=== PATIENT | male | born 1940 | race Caucasian/White ===

== ENCOUNTER → 2018-03-21 | Outpatient (CLI) | payer MEDICARE ==
[~2018-03-21] MED LIST: AMOCLA875 PO; ASPI81CH PO; ATOR40TA PO; DILT120 PO; ENAHYD PO; EZET10-40 PO; Enalapril-Hctz1 EACH PO; FLUO.05TC TOP; FLUO.05TO TOP; METF500 PO; OMEP20ER PO; PANT40 PO; PIOG30 PO; SIMV20 PO; TAMS.4ER PO
== END ==
LOC: PLD 08:33 → LAB SHORT 08:33
DX: D48.5 Neoplasm of uncertain behavior of skin (principal)
CPT/HCPCS: 88305

== ENCOUNTER 2025-03-11 10:44 | Emergency (ER) | payer OTHER ==
[~2025-03-11] VITALS: Ht 172.7 cm; Wt 86.2 kg
[~2025-03-11 10:44] MED LIST changes: +PIOG45
[2025-03-11] MEDS ORDERED: Dexamethasone Sod Phos 10 MG/ML 1ML VIAL IV ONE (10:55)
[2025-03-11] MEDS ORDERED: Tranexamic Acid 100 ML IV ONE (10:55)
[2025-03-11] MEDS ORDERED: DiphenhydrAMINE HCl 50 MG/ML 1ML Vial IV ONE (10:55)
[2025-03-11] MEDS ORDERED: BENADRYL25 MG PO (11:07)
[2025-03-11] MEDS ORDERED: Amitriptyline H10 MG PO (11:07)
[2025-03-11] MEDS ORDERED: FARXIGA10 MG PO (11:08)
[2025-03-11 11:32] LABS: BASOPHILS ABSOLUTE AUTO 0.05 K/mm3 (0.00-0.23); BASOPHILS PERCENT AUTO 1 % (0-2); EOSINOPHILS ABSOLUTE AUTO 0.26 K/mm3 (0.00-0.68); EOSINOPHILS PERCENT AUTO 4 % (0-6); Hematocrit 37.2 % (37.0-53.0); Hemoglobin 12.2 g/dL (13.5-17.5); IMMATURE GRAN ABSOLUTE AUTO 0.01 K/mm3 (0.00-0.10); IMMATURE GRAN PERCENT AUTO 0 % (0-1); LYMPHOCYTES ABSOLUTE AUTO 1.15 K/mm3 (0.84-5.20); LYMPHOCYTES PERCENT AUTO 17 % (21-46); MONOCYTES PERCENT AUTO 8 % (4-13); Mean Corpuscular HGB Conc 32.8 g/dL (31.5-36.5); Mean Corpuscular Volume 95 fL (80-100); Mean Platelet Volume 10.8 fL (9.1-12.4); NEUTROPHILS ABSOLUTE AUTO 4.67 K/mm3 (1.96-9.15); NEUTROPHILS PERCENT AUTO 70 % (41-73); Platelet Count 201 K/mm3 (150-400); RDW Coefficient Variation 13.3 % (11.7-14.2); RDW Standard Deviation 46.5 fL (35.1-46.3); Red Blood Cell Count 3.93 M/mm3 (4.30-5.90); White Blood Cell Count 6.64 K/mm3 (4.00-11.30)
[2025-03-11 11:38] VITALS: BP 178/88
[2025-03-11 11:53] LABS: Albumin, Blood 3.9 g/dL (3.4-5.0); Albumin/Globulin Ratio 1.1 (0.8-1.8); Bilirubin, Total 0.4 mg/dL (0.1-1.0); Bun/Creatinine Ratio 18.8 (12.0-20.0); Calcium, Blood 9.1 mg/dL (8.5-10.1); Creatinine, Blood 2.93 mg/dL (0.60-1.20); Globulin, Blood 3.5 g/dL (2.2-4.0); Potassium, Blood 4.9 mmol/L (3.5-5.5); Total Protein, Blood 7.4 g/dL (6.4-8.2)
[2025-03-11] MEDS ORDERED: Hydrochloroth12.5 MG PO (12:30)
[2025-03-11] MEDS ORDERED: LOSA25 PO (12:30)
[2025-03-11] MEDS ORDERED: HYDROCHLOROTH12.5 MG PO (12:42)
== END 2025-03-11 12:46 | disposition home or self-care (01) ==
LOC: ER 10:44
PROVIDERS: Emergency Medicine
DX: T78.3XXA Angioneurotic edema, initial encounter (principal); T46.4X5A Adverse effect of angiotensin-converting-enzyme inhibitors, initial encounter; E11.22 Type 2 diabetes mellitus with diabetic chronic kidney disease; N18.9 Chronic kidney disease, unspecified; M19.90 Unspecified osteoarthritis, unspecified site; Z91.030 Bee allergy status; Z79.84 Long term (current) use of oral hypoglycemic drugs; Z79.82 Long term (current) use of aspirin; Z79.899 Other long term (current) drug therapy
CPT/HCPCS: 80053; 85025; 96374; 96375; 99283-25; J1100; J1200

== ENCOUNTER 2025-04-18 09:42 | Day surgery (SDC) | payer OTHER ==
[~2025-04-18] VITALS: Ht 170.2 cm; Wt 83.9 kg
[~2025-04-18 09:42] MED LIST changes: +Amitriptyline H10 MG PO; +BENADRYL25 MG PO; +Balanced Salt Epinephrine Irrigation Solution 500 mL IR SCH; +FARXIGA10 MG PO; +HYDROCHLOROTH12.5 MG PO; +Hydrochloroth12.5 MG PO; +LOSA25 PO; +Moxifloxacin HCL 0.5 MG/0.1 ML 0.4MLSYR RIGHTEYE SCH; +Ondansetron 4 MG SoluTab MM PRN; +PHENYLEPHRINE\\TROPICAMIDE\\TETRACAINE OPHTHALMIC DILATING SOLN RIGHTEYE PRN; +Povidone-Iodine 450 DROP/30 ML Solution ONE; +Povidone-Iodine 450 DROP/30 ML Solution RIGHTEYE SCH; +Tetracaine HCl/Pf 0.5% Opth Soln 4 ml ONE; +diazePAM 5 MG,diazePAM 2 MG PO SCH
[2025-04-18] MEDS ORDERED: TRIA15CR3 TOP (10:11)
--- NOTE | 2025-04-18 10:17 | NUR ---
04/18/25 1017 Joanne Queen PATIENT'S BP WAS ELEVATED AND OUT OF RANGE UPON FIRST COMING TO PREOP. AFTER HAVING PATIENT SIT FOR A FEW MINUTES, BP DID COME DOWN TO RANGE WITHIN PARAMETERS FOR VALIUM ADMINISTRATION. SPO2 MONITOR WAS GIVING FLUCTUATING HEART RATE READINGS BETWEEN 43-80 SO RHYTHM STRIP OBTAINED AND DR REVIEWED AND STATED OKAY TO PROCEED. PT REPORTED 0/10 ANXIETY LEVEL PRIOR TO ADMINISTRATION OF VALIUM 7MG PO @ 1014. TETRACAINE IN AT 1014, PLEDGETT IN AT 1015. CALL LIGHT IN PT'S HAND AND CONTINUOUS SPO2 AND HR MONITORING IN PLACE.
[2025-04-18] MEDS ORDERED: Tetracaine HCl 0.5% Opth Soln 15 ml RIGHTEYE ONE (11:29)
--- NOTE | 2025-04-18 11:34 | NUR ---
04/18/25 1134 Efren Mcgowan N 187/88 96% 10L BLOW BY O2 76 16 PT RESTING COMFORTABLY VSS, NO SIGNS OF DISTRESS OR DISCOMFORT.
[2025-04-18 11:50] VITALS: BP 172/60
== END 2025-04-18 12:08 | disposition home or self-care (01) ==
LOC: ORSCSDS 09:42
PROVIDERS: Student in an Organized Health Care Education/Training Program
PROC: 08RJ3JZ Replacement of Right Lens with Synthetic Substitute, Percutaneous Approach (ICD-10-PCS; principal; 2025-04-18 11:30)
DX: E11.36 Type 2 diabetes mellitus with diabetic cataract (principal); H25.813 Combined forms of age-related cataract, bilateral; I10 Essential (primary) hypertension; E78.00 Pure hypercholesterolemia, unspecified; Z87.891 Personal history of nicotine dependence; Z79.84 Long term (current) use of oral hypoglycemic drugs; Z79.82 Long term (current) use of aspirin; Z79.899 Other long term (current) drug therapy
CPT/HCPCS: A9270; J2003; V2632

== ENCOUNTER 2025-04-25 06:15 | Day surgery (SDC) | payer OTHER ==
[~2025-04-25] VITALS: Ht 170.2 cm; Wt 83.8 kg
[~2025-04-25 06:15] MED LIST changes: +Moxifloxacin HCL 0.5 MG/0.1 ML 0.4MLSYR LEFTEYE SCH; -Moxifloxacin HCL 0.5 MG/0.1 ML 0.4MLSYR RIGHTEYE SCH; +PHENYLEPHRINE\\TROPICAMIDE\\TETRACAINE OPHTHALMIC DILATING SOLN LEFTEYE PRN; -PHENYLEPHRINE\\TROPICAMIDE\\TETRACAINE OPHTHALMIC DILATING SOLN RIGHTEYE PRN; +Povidone-Iodine 450 DROP/30 ML Solution LEFTEYE SCH; -Povidone-Iodine 450 DROP/30 ML Solution RIGHTEYE SCH; +TRIA15CR3 TOP
--- NOTE | 2025-04-25 06:49 | NUR ---
04/25/25 0649 Joanne Queen PATIENT REPORTS ANXIETY LEVEL 0/10 PRIOR TO ADMINISTRATION OF VALIUM 7MG PO @ 0645. TETRACAINE IN AT 0647. PLEDGETT IN AT 0648. CALL LIGHT IN PLACE. SPO2 AND HR MONITORING IN PLACE. JERI AT BEDSIDE.
--- NOTE | 2025-04-25 08:11 | NUR ---
04/25/25 0811 Evonne Betancourt HR: 73 BP: 185/90 SPO2: 100% ON 2L NASAL CANNULA
[2025-04-25 08:27] VITALS: BP 182/84
--- NOTE | 2025-04-25 08:29 | NUR ---
04/25/25 0841 Viki Sow DENTURES AND GLASSES RETURNED TO PATIENT. JERI INSTRUCTED TO PULL CAR AROUND TO IMPROVEMENT SPECIALIST AREA
== END 2025-04-25 08:36 | disposition home or self-care (01) ==
LOC: ORSCSDS 06:15
PROVIDERS: Student in an Organized Health Care Education/Training Program
PROC: 08RK3JZ Replacement of Left Lens with Synthetic Substitute, Percutaneous Approach (ICD-10-PCS; principal; 2025-04-25 08:00)
DX: E11.36 Type 2 diabetes mellitus with diabetic cataract (principal); H25.812 Combined forms of age-related cataract, left eye; Z96.1 Presence of intraocular lens; Z87.891 Personal history of nicotine dependence; E78.00 Pure hypercholesterolemia, unspecified; I10 Essential (primary) hypertension; Z79.82 Long term (current) use of aspirin; Z79.899 Other long term (current) drug therapy
CPT/HCPCS: A9270; V2632

== ENCOUNTER 2025-08-28 11:54 | Inpatient (IN) | payer OTHER ==
[~2025-08-28] VITALS: Ht 170.2 cm; Wt 79.5 kg
[~2025-08-28 11:54] MED LIST changes: -Balanced Salt Epinephrine Irrigation Solution 500 mL IR SCH; -Moxifloxacin HCL 0.5 MG/0.1 ML 0.4MLSYR LEFTEYE SCH; -Ondansetron 4 MG SoluTab MM PRN; -PHENYLEPHRINE\\TROPICAMIDE\\TETRACAINE OPHTHALMIC DILATING SOLN LEFTEYE PRN; -Povidone-Iodine 450 DROP/30 ML Solution LEFTEYE SCH; -Povidone-Iodine 450 DROP/30 ML Solution ONE; -Tetracaine HCl/Pf 0.5% Opth Soln 4 ml ONE; -diazePAM 5 MG,diazePAM 2 MG PO SCH
[2025-08-28 12:21] LABS: BASOPHILS ABSOLUTE AUTO 0.04 K/mm3 (0.00-0.23); BASOPHILS PERCENT AUTO 1 % (0-2); EOSINOPHILS ABSOLUTE AUTO 0.15 K/mm3 (0.00-0.68); EOSINOPHILS PERCENT AUTO 2 % (0-6); Hematocrit 35.5 % (37.0-53.0); Hemoglobin 11.5 g/dL (13.5-17.5); IMMATURE GRAN ABSOLUTE AUTO 0.03 K/mm3 (0.00-0.10); IMMATURE GRAN PERCENT AUTO 0 % (0-1); LYMPHOCYTES ABSOLUTE AUTO 0.48 K/mm3 (0.84-5.20); LYMPHOCYTES PERCENT AUTO 7 % (21-46); MONOCYTES ABSOLUTE AUTO 0.66 K/mm3 (0.16-1.47); MONOCYTES PERCENT AUTO 9 % (4-13); Mean Corpuscular HGB Conc 32.4 g/dL (31.5-36.5); Mean Corpuscular Volume 89 fL (80-100); NEUTROPHILS ABSOLUTE AUTO 6.08 K/mm3 (1.96-9.15); NEUTROPHILS PERCENT AUTO 82 % (41-73); NRBC ABSOLUTE 0.00 K/mm3 (0.00-0.02); NRBC Auto 0.0 /100 WBC (0.0-0.2); Platelet Count 246 K/mm3 (150-400); RDW Coefficient Variation 15.1 % (11.7-14.2); RDW Standard Deviation 49.1 fL (35.1-46.3)
[2025-08-28 12:51] LABS: Alanine Aminotransfer (ALT/SGP 59.0 U/L (12-78); Albumin, Blood 3.4 g/dL (3.4-5.0); Albumin/Globulin Ratio 1.1 (0.8-1.8); Anion Gap 10.0 mmol/L (3-11); Aspartate Aminotrans (AST/SGOT 23.0 U/L (12-37); Bilirubin, Total 0.6 mg/dL (0.1-1.0); Blood Urea Nitrogen 32.0 mg/dL (8-24); CO2, Blood 28.0 mmol/L (21-32); Calcium, Blood 8.6 mg/dL (8.5-10.1); Chloride, Blood 103.0 mmol/L (98-108); Creatinine, Blood 2.58 mg/dL (0.60-1.20); Globulin, Blood 3.2 g/dL (2.2-4.0); Glucose, Blood 226.0 mg/dL (70-99); Potassium, Blood 3.8 mmol/L (3.5-5.5); Sodium, Blood 137.0 mmol/L (136-145); Total Protein, Blood 6.6 g/dL (6.4-8.2)
[2025-08-28] MEDS ORDERED: Magnesium Hydroxide Conc 10 ML UDC PO PRN (15:10)
[2025-08-28] MEDS ORDERED: FLU VACC TS2025(65UP)/MF59C/PF 45 MCG/0.5 ML SYRINGE IM SCH (15:15)
[2025-08-28] MEDS ORDERED: Insulin Human Lispro 100 Units/ML 3ML Syringe SC SCH (16:30)
[2025-08-28 18:02] VITALS: BP 154/67
--- NOTE | 2025-08-28 18:35 | NUR ---
PT ARRIVED VIA WC FROM ED, PHONE REPORT RECEIVED FROM ROBINA SOSA. PT TRANSFERRED FROM WC TO BED INDEPENDENTLY IS STEADY ON FEET, SOB WITH ACTIVITY ON 4L NC. DENIES PAIN, EDEMATOUS TO BLE, MEAL PROVIDED UPON ARRIVAL TO UNIT. 1811: CALLED DR BROWN FOR CLARIFICATION ON LASIX 80MG IVP DOSE DUE, PER DR BROWN DO NOT GIVE LASIX 80MG. NEW ORDER RECEIVED FOR LASIX 40MG IVP ONE TIME DOSE. REVIEWED WITH PATIENT FALL RISK INTERVENTIONS AND CALL LIGHT USE, BED ALARM ON, CALL LIGHT IN REACH. OXYGEN TITRATED TO 2L NC SATS 95%. PT CURRENTLY EATING MEAL, AT BEDSIDE. WILL REPORT TO ONCOMMING SHIFT NEED FOR ADMIT COMPLETION.
[2025-08-28] MEDS ORDERED: FURO40 PO (18:45)
[2025-08-28] MEDS ORDERED: POTA10T PO (18:46)
[2025-08-28] MEDS ORDERED: MIRT15 PO (18:46)
[2025-08-28] MEDS ORDERED: MINO2.5 PO (18:47)
[2025-08-28] MEDS ORDERED: GLIP10 PO (18:47)
[2025-08-28] MEDS ORDERED: HYDR1TAB94 PO (18:49)
[2025-08-28] MEDS ORDERED: HYDCOR2.5C TOP (18:50)
[2025-08-28] MEDS ORDERED: KETO15TC TOP (18:51)
[2025-08-28] MEDS ORDERED: Heparin Sodium,Porcine 5,000 UNIT/0.5 ML SDV SC SCH (21:00)
[2025-08-28 23:19] VITALS: BP 127/83
[2025-08-29] VITALS (8 sets, daily range): BP systolic 96–157; BP diastolic 53–76
--- NOTE | 2025-08-29 03:52 | NUR ---
SHIFT SUMMARY: PT IS AOX4. VSS. CARDIAC TELEMETRY MONITORING, NSR 70s. DENIES CP. CURRENTLY ON 2L O2 VIA NC, BUT REQUIRES 5L WITH STANDING. LUNG SOUNDS ARE CRACKLES THROUGHOUT. PT HAS 3+ EDEMA TO BLE AND HIPS. CALL LIGHT IS WITHIN REACH. BED IS LOW AND LOCKED.
[2025-08-29 06:07] LABS: BASOPHILS ABSOLUTE AUTO 0.06 K/mm3 (0.00-0.23); BASOPHILS PERCENT AUTO 1 % (0-2); EOSINOPHILS ABSOLUTE AUTO 0.27 K/mm3 (0.00-0.68); EOSINOPHILS PERCENT AUTO 4 % (0-6); Hematocrit 33.8 % (37.0-53.0); Hemoglobin 10.9 g/dL (13.5-17.5); IMMATURE GRAN ABSOLUTE AUTO 0.01 K/mm3 (0.00-0.10); IMMATURE GRAN PERCENT AUTO 0 % (0-1); LYMPHOCYTES ABSOLUTE AUTO 0.55 K/mm3 (0.84-5.20); LYMPHOCYTES PERCENT AUTO 8 % (21-46); MONOCYTES ABSOLUTE AUTO 0.68 K/mm3 (0.16-1.47); MONOCYTES PERCENT AUTO 9 % (4-13); Mean Corpuscular HGB Conc 32.2 g/dL (31.5-36.5); Mean Corpuscular Volume 89 fL (80-100); NEUTROPHILS ABSOLUTE AUTO 5.64 K/mm3 (1.96-9.15); NEUTROPHILS PERCENT AUTO 78 % (41-73); NRBC ABSOLUTE 0.00 K/mm3 (0.00-0.02); NRBC Auto 0.0 /100 WBC (0.0-0.2); Platelet Count 225 K/mm3 (150-400); RDW Coefficient Variation 15.2 % (11.7-14.2); RDW Standard Deviation 49.9 fL (35.1-46.3)
[2025-08-29 06:44] LABS: Anion Gap 8.0 mmol/L (3-11); Blood Urea Nitrogen 35.0 mg/dL (8-24); CO2, Blood 31.0 mmol/L (21-32); Calcium, Blood 8.6 mg/dL (8.5-10.1); Chloride, Blood 102.0 mmol/L (98-108); Creatinine, Blood 2.77 mg/dL (0.60-1.20); Glucose, Blood 102.0 mg/dL (70-99); Magnesium, Blood 2.3 mg/dL (1.6-2.4); Potassium, Blood 3.3 mmol/L (3.5-5.5); Sodium, Blood 138.0 mmol/L (136-145)
[2025-08-29] MEDS ORDERED: Potassium Chl 20MEQ/Water100ML 100 ML IV STA (08:30)
[2025-08-29] MEDS ORDERED: NS 250 ML IV PRN (08:40)
[2025-08-29] MEDS ORDERED: Potassium Chloride 10 Meq Tablet SA PO SCH (12:00)
--- NOTE | 2025-08-29 18:34 | NUR ---
SHIFT SUMMARY PATIENT ALERT AND ORIENTED X4, MAKE NEEDS KNOWN. PLEASANT AND COOPERATIVE DURING CARE. PATIENT DENIES PAIN. MEDICATED PER EMAR. STAND BY ASSIST D/T OXYGEN TUBING. PT ON 3L/NC AT THE MOMENT. PT VOIDING AND TOLERATING PO. NO ACUTE CHANGE DURING THIS SHIFT. VITAL SIGNS STABLE. SELF-REPOSITION IN BED. BED LOCKED AND IN LOWEST POSITION. CALL LIGHT WITHIN REACH.
[2025-08-30 03:02] VITALS: BP 155/77
--- NOTE | 2025-08-30 04:03 | NUR ---
SHIFT SUMMARY: PT IS AOX4. INDEPENDENT WITH URINAL, BUT SBA TO TOILET. PT GETS VERY SOB WITH EXERTION, WHEN GETTING OOB O2 IS INCREASED FROM 3L TO 5L WHILE AMBULATING. PT HAS BLE EDEMA THAT EXTENDS FROM FEET TO HIPS. LUNGS ARE DIMINISHED TO BASES. MAINTAINING STRICT I&OS. PT IS CURRENTLY AWAKE AND IN A RECLINER, CHAIR ALARM IN PLACE. CALL LIGHT IS WITHIN REACH.
[2025-08-30 07:44] VITALS: BP 161/79
[2025-08-30 08:32] LABS: BASOPHILS ABSOLUTE AUTO 0.08 K/mm3 (0.00-0.23); BASOPHILS PERCENT AUTO 1 % (0-2); EOSINOPHILS ABSOLUTE AUTO 0.49 K/mm3 (0.00-0.68); EOSINOPHILS PERCENT AUTO 6 % (0-6); Hematocrit 39.6 % (37.0-53.0); Hemoglobin 12.5 g/dL (13.5-17.5); IMMATURE GRAN ABSOLUTE AUTO 0.01 K/mm3 (0.00-0.10); IMMATURE GRAN PERCENT AUTO 0 % (0-1); LYMPHOCYTES ABSOLUTE AUTO 0.63 K/mm3 (0.84-5.20); LYMPHOCYTES PERCENT AUTO 8 % (21-46); MONOCYTES ABSOLUTE AUTO 0.66 K/mm3 (0.16-1.47); MONOCYTES PERCENT AUTO 8 % (4-13); Mean Corpuscular HGB Conc 31.6 g/dL (31.5-36.5); Mean Corpuscular Volume 90 fL (80-100); NEUTROPHILS ABSOLUTE AUTO 6.04 K/mm3 (1.96-9.15); NEUTROPHILS PERCENT AUTO 76 % (41-73); NRBC ABSOLUTE 0.00 K/mm3 (0.00-0.02); NRBC Auto 0.0 /100 WBC (0.0-0.2); Platelet Count 276 K/mm3 (150-400); RDW Coefficient Variation 15.0 % (11.7-14.2); RDW Standard Deviation 49.2 fL (35.1-46.3)
[2025-08-30 09:27] LABS: Alanine Aminotransfer (ALT/SGP 52.0 U/L (12-78); Albumin, Blood 3.4 g/dL (3.4-5.0); Albumin/Globulin Ratio 1.0 (0.8-1.8); Anion Gap 8.0 mmol/L (3-11); Aspartate Aminotrans (AST/SGOT 27.0 U/L (12-37); Bilirubin, Total 0.7 mg/dL (0.1-1.0); Blood Urea Nitrogen 35.0 mg/dL (8-24); CO2, Blood 34.0 mmol/L (21-32); Calcium, Blood 8.6 mg/dL (8.5-10.1); Chloride, Blood 101.0 mmol/L (98-108); Creatinine, Blood 2.74 mg/dL (0.60-1.20); Globulin, Blood 3.3 g/dL (2.2-4.0); Glucose, Blood 82.0 mg/dL (70-99); Potassium, Blood 3.3 mmol/L (3.5-5.5); Sodium, Blood 140.0 mmol/L (136-145); Total Protein, Blood 6.7 g/dL (6.4-8.2)
[2025-08-30] MEDS ORDERED: Potassium Chl 20MEQ/Water100ML 100 ML IV STA (09:45)
[2025-08-30] MEDS ORDERED: Potassium Chl 20MEQ/Water100ML 100 ML IV ONE (12:30)
--- NOTE | 2025-08-30 13:14 | NUR ---
PALLIATIVE CARE CONSULT RECEIVED FOR CARDIAC, AD/POLST. CHART REVIEWED. NO POLST CURRENTLY ON FILE. PT IS A FULL CODE CURRENTLY.
[2025-08-30 17:05] VITALS: BP 158/78
--- NOTE | 2025-08-30 17:43 | NUR ---
SHIFT SUMMARY PT A&OX4, VSS, ON 2L O2 NC, AMB W/ ASSIST, TOLERATING PO, VOIDING, AND DENIED PAIN. PT'S K LOW THIS AM, K INF AND ORAL GIVEN PER ORDER. NEW IV ACCESS OBTAINED. PT STATES EDEMA AND BREATHING IMPROVED FROM YESTERDAY. NO OTHER ACUTE CHANGES. CALL LIGHT WITHIN REACH AND PT ABLE TO MAKE NEEDS KNOWN.
[2025-08-30 21:16] VITALS: BP 138/79
[2025-08-31 02:47] VITALS: BP 144/70
--- NOTE | 2025-08-31 05:36 | NUR ---
COOLING SYSTEM OPERATOR SUMMARY PT A&OX4, VSS. ABLE TO COMMUNICATE NEEDS APPROPRIATELY. PT HAS BEEN ASLEEP FOR THE GREATER HALF OF THE SHIFT. CHEST RISE/RESPIRATIONS NOTED. REMAINS ON TELE. SR AT 92 W/ BBB. REMAINS ON 2L NC. O2 SATS >=94% ON 2L. PT IS IMPULSIVE AND OVERESTIMATES ABILITIES. GETS UP W/O CALLING FOR APPROPRIATE ASSISTANCE. BED ALARM ON. BED RAILS UP X 2, BED IN LOWEST POSITION, BED WHEELS LOCKED, PERSONAL BELONGINGS AND CALL LIGHT WITHIN REACH FOR SAFETY.
[2025-08-31 07:38] VITALS: BP 132/65
[2025-08-31 08:11] LABS: Anion Gap 6.0 mmol/L (3-11); Blood Urea Nitrogen 41.0 mg/dL (8-24); CO2, Blood 38.0 mmol/L (21-32); Calcium, Blood 8.3 mg/dL (8.5-10.1); Chloride, Blood 101.0 mmol/L (98-108); Creatinine, Blood 2.65 mg/dL (0.60-1.20); Glucose, Blood 86.0 mg/dL (70-99); Potassium, Blood 3.3 mmol/L (3.5-5.5); Sodium, Blood 142.0 mmol/L (136-145)
[2025-08-31 11:24] VITALS: BP 135/79
[2025-08-31 15:20] VITALS: BP 123/66
[2025-08-31 17:25] VITALS: BP 137/68
[2025-08-31 17:41] LABS: Anion Gap 6.0 mmol/L (3-11); Blood Urea Nitrogen 41.0 mg/dL (8-24); CO2, Blood 38.0 mmol/L (21-32); Calcium, Blood 8.5 mg/dL (8.5-10.1); Chloride, Blood 98.0 mmol/L (98-108); Creatinine, Blood 2.79 mg/dL (0.60-1.20); Glucose, Blood 105.0 mg/dL (70-99); Potassium, Blood 3.7 mmol/L (3.5-5.5); Sodium, Blood 138.0 mmol/L (136-145)
--- NOTE | 2025-08-31 18:31 | NUR ---
SHIFT SUMMARY PATIENT ALERT AND ORIENTED X4, MAKE NEEDS KNOWN. PLEASANT AND RECEPTIVE DURING CARE. PATIENT DENIES PAIN, CP, AND SOB. STAND BY ASSIST D/T OXYGEN TUBING. PT ON 2L/NC AT THE MOMENT. PT EVAL ORDERED. PT VOIDING AND TOLERATING PO. NO ACUTE CHANGE DURING THIS SHIFT. VITAL SIGNS STABLE. SELF-REPOSITION IN BED. BED LOCKED, ALARM ON, AND IN LOWEST POSITION. CALL LIGHT WITHIN REACH.
[2025-08-31 20:01] VITALS: BP 126/72
[2025-09-01] VITALS (7 sets, daily range): BP systolic 121–147; BP diastolic 59–83
--- NOTE | 2025-09-01 04:25 | NUR ---
SHIFT SUMMARY; PATIENT SLEPT IN SHORT INTERVALS, HAD SOME CONFUSION AND SPILLED URINE OR JUST URINATED ON FLOOR, NEXT TO HIS BED. PULLING HIS OXIMETER OFF AND SOME TELE LEADS. CLEANED HIM UP AND THE FLOOR. AND MADE SURE THE BED ALARM WAS ON. HE HAD BEEN A&OX 4, BUT SEEMS TO HAVING SOME LATE ONSET SUNDOWNERS.O2/2L/NC, WHICH WHEN HE PULLS IT OFF, SATS DROP TO 80'S. TELE SR 85 WITH FIRST DEGREE AND BBB. DENIES CP. BLE EDEMA 2+.
[2025-09-01 05:36] LABS: BASOPHILS ABSOLUTE AUTO 0.06 K/mm3 (0.00-0.23); BASOPHILS PERCENT AUTO 1 % (0-2); EOSINOPHILS ABSOLUTE AUTO 0.35 K/mm3 (0.00-0.68); EOSINOPHILS PERCENT AUTO 5 % (0-6); Hematocrit 34.5 % (37.0-53.0); Hemoglobin 11.1 g/dL (13.5-17.5); IMMATURE GRAN ABSOLUTE AUTO 0.01 K/mm3 (0.00-0.10); IMMATURE GRAN PERCENT AUTO 0 % (0-1); LYMPHOCYTES ABSOLUTE AUTO 0.82 K/mm3 (0.84-5.20); LYMPHOCYTES PERCENT AUTO 11 % (21-46); MONOCYTES ABSOLUTE AUTO 0.81 K/mm3 (0.16-1.47); MONOCYTES PERCENT AUTO 11 % (4-13); Mean Corpuscular HGB Conc 32.2 g/dL (31.5-36.5); Mean Corpuscular Volume 88 fL (80-100); NEUTROPHILS ABSOLUTE AUTO 5.34 K/mm3 (1.96-9.15); NEUTROPHILS PERCENT AUTO 72 % (41-73); NRBC ABSOLUTE 0.00 K/mm3 (0.00-0.02); NRBC Auto 0.0 /100 WBC (0.0-0.2); Platelet Count 225 K/mm3 (150-400); RDW Coefficient Variation 14.8 % (11.7-14.2); RDW Standard Deviation 47.6 fL (35.1-46.3)
[2025-09-01 06:11] LABS: Alanine Aminotransfer (ALT/SGP 44.0 U/L (12-78); Albumin, Blood 3.0 g/dL (3.4-5.0); Albumin/Globulin Ratio 1.0 (0.8-1.8); Anion Gap 6.0 mmol/L (3-11); Aspartate Aminotrans (AST/SGOT 26.0 U/L (12-37); Bilirubin, Total 0.8 mg/dL (0.1-1.0); Blood Urea Nitrogen 47.0 mg/dL (8-24); CO2, Blood 38.0 mmol/L (21-32); Calcium, Blood 8.4 mg/dL (8.5-10.1); Chloride, Blood 96.0 mmol/L (98-108); Creatinine, Blood 2.81 mg/dL (0.60-1.20); Globulin, Blood 3.1 g/dL (2.2-4.0); Glucose, Blood 93.0 mg/dL (70-99); Potassium, Blood 3.2 mmol/L (3.5-5.5); Sodium, Blood 137.0 mmol/L (136-145); Total Protein, Blood 6.1 g/dL (6.4-8.2)
--- NOTE | 2025-09-01 15:59 | NUR ---
SHIFT SUMMARY PT AOX4, COOPERATIVE, ABLE TO MAKE NEEDS KNOWN. PT IS SBA IN ROOM, ON 1-2L O2 CURRENLTY. HOME O2 EVAL PERFORMED THIS SHIFT. STILL DIURESING. TOLERATING MEDICATIONS. NO OTHER ACUTE CHANGES TOOK PLACE THIS SHIFT. BED IN LOWEST POSITIN, CALL LIGHT WITHIN REACH.
[2025-09-01 16:00] LABS: Anion Gap 7.0 mmol/L (3-11); Blood Urea Nitrogen 47.0 mg/dL (8-24); CO2, Blood 38.0 mmol/L (21-32); Calcium, Blood 8.5 mg/dL (8.5-10.1); Chloride, Blood 95.0 mmol/L (98-108); Creatinine, Blood 2.78 mg/dL (0.60-1.20); Glucose, Blood 143.0 mg/dL (70-99); Potassium, Blood 3.3 mmol/L (3.5-5.5); Sodium, Blood 137.0 mmol/L (136-145)
[2025-09-02 00:45] LABS: Anion Gap 9.0 mmol/L (3-11); Blood Urea Nitrogen 51.0 mg/dL (8-24); CO2, Blood 37.0 mmol/L (21-32); Calcium, Blood 8.7 mg/dL (8.5-10.1); Chloride, Blood 95.0 mmol/L (98-108); Creatinine, Blood 2.91 mg/dL (0.60-1.20); Glucose, Blood 109.0 mg/dL (70-99); Potassium, Blood 3.5 mmol/L (3.5-5.5); Sodium, Blood 137.0 mmol/L (136-145)
[2025-09-02 04:06] VITALS: BP 132/59
--- NOTE | 2025-09-02 04:17 | NUR ---
SHIFT SUMMARY PATIENT A/OX3-4, PLEASANT AND COOPERATIVE WITH CARE. PATIENT WITH AN EPISODE OF DISORIENTATION THIS SHIFT. WOKE FROM SLEEP, SET THE BED ALARM OFF AND WAS PROMPTLY FOUND BY NURSING STAFF URINATING IN THE SINK. PATIENT WAS REDIRECTED AND FELL BACK TO SLEEP. NO OTHER INSTANCES OF CONFUSION. TELEMETRY IN PLACE, NSR WITH BBB. ATTEMPTED TO TITRATE PATIENT OFF OF OXYGEN TONIGHT. PATIENT TOLERATED ROOM AIR WHILE AWAKE AND AT REST BUT WITH EXERTION QUICKLY DESATS TO 80s. CURRENTLY PATIENT ON 2 LPM HE WAS DESATTING WHEN ASLEEP WELL. CONTINUES WITH 3+ BLE EDEMA. POTASSIUM REPLACED ORALLY EARLY THIS AM. NO OTHER CONCERNS AT THIS TIME, WILL CONTINUE TO MONITOR.
[2025-09-02 05:43] LABS: BASOPHILS ABSOLUTE AUTO 0.08 K/mm3 (0.00-0.23); BASOPHILS PERCENT AUTO 1 % (0-2); EOSINOPHILS ABSOLUTE AUTO 0.34 K/mm3 (0.00-0.68); EOSINOPHILS PERCENT AUTO 5 % (0-6); Hematocrit 36.9 % (37.0-53.0); Hemoglobin 11.8 g/dL (13.5-17.5); IMMATURE GRAN ABSOLUTE AUTO 0.02 K/mm3 (0.00-0.10); IMMATURE GRAN PERCENT AUTO 0 % (0-1); LYMPHOCYTES ABSOLUTE AUTO 0.90 K/mm3 (0.84-5.20); LYMPHOCYTES PERCENT AUTO 13 % (21-46); MONOCYTES ABSOLUTE AUTO 0.98 K/mm3 (0.16-1.47); MONOCYTES PERCENT AUTO 14 % (4-13); Mean Corpuscular HGB Conc 32.0 g/dL (31.5-36.5); Mean Corpuscular Volume 88 fL (80-100); NEUTROPHILS ABSOLUTE AUTO 4.85 K/mm3 (1.96-9.15); NEUTROPHILS PERCENT AUTO 68 % (41-73); NRBC ABSOLUTE 0.00 K/mm3 (0.00-0.02); NRBC Auto 0.0 /100 WBC (0.0-0.2); Platelet Count 234 K/mm3 (150-400); RDW Coefficient Variation 14.7 % (11.7-14.2); RDW Standard Deviation 47.6 fL (35.1-46.3)
[2025-09-02 06:07] LABS: Anion Gap 9.0 mmol/L (3-11); Blood Urea Nitrogen 47.0 mg/dL (8-24); CO2, Blood 38.0 mmol/L (21-32); Calcium, Blood 8.9 mg/dL (8.5-10.1); Chloride, Blood 94.0 mmol/L (98-108); Creatinine, Blood 2.83 mg/dL (0.60-1.20); Glucose, Blood 96.0 mg/dL (70-99); Potassium, Blood 3.7 mmol/L (3.5-5.5); Sodium, Blood 137.0 mmol/L (136-145)
[2025-09-02 07:23] VITALS: BP 131/75
[2025-09-02 11:32] VITALS: BP 135/81
[2025-09-02 14:46] VITALS: BP 130/87
--- NOTE | 2025-09-02 16:59 | NUR ---
PATIENT RESTING IN BED THIS SHIFT, SITS AT BEDSIDE AND ELEVATES LEGS IN BED TO HELP WITH SWELLING. PATIENT STATED SWELLING HAS IMPROVED OVER THE LAST DAY OR TWO. USES CALL LIGHT APPROPRIATLEY AND HAS NO CONCERNS. POSSIBLE DISCHARGE TOMORROW PENDING MD. PATIENT COOPERATIVE WITH CARE.
[2025-09-02 20:12] VITALS: BP 120/62
[2025-09-02 23:56] VITALS: BP 123/66
[2025-09-03 03:41] VITALS: BP 146/75
[2025-09-03 05:11] LABS: BASOPHILS ABSOLUTE AUTO 0.05 K/mm3 (0.00-0.23); BASOPHILS PERCENT AUTO 1 % (0-2); EOSINOPHILS ABSOLUTE AUTO 0.33 K/mm3 (0.00-0.68); EOSINOPHILS PERCENT AUTO 5 % (0-6); Hematocrit 34.5 % (37.0-53.0); Hemoglobin 11.5 g/dL (13.5-17.5); IMMATURE GRAN ABSOLUTE AUTO 0.02 K/mm3 (0.00-0.10); IMMATURE GRAN PERCENT AUTO 0 % (0-1); LYMPHOCYTES ABSOLUTE AUTO 0.94 K/mm3 (0.84-5.20); LYMPHOCYTES PERCENT AUTO 13 % (21-46); MONOCYTES ABSOLUTE AUTO 0.88 K/mm3 (0.16-1.47); MONOCYTES PERCENT AUTO 12 % (4-13); Mean Corpuscular HGB Conc 33.3 g/dL (31.5-36.5); Mean Corpuscular Volume 87 fL (80-100); NEUTROPHILS ABSOLUTE AUTO 4.98 K/mm3 (1.96-9.15); NEUTROPHILS PERCENT AUTO 69 % (41-73); NRBC ABSOLUTE 0.00 K/mm3 (0.00-0.02); NRBC Auto 0.0 /100 WBC (0.0-0.2); Platelet Count 229 K/mm3 (150-400); RDW Coefficient Variation 14.7 % (11.7-14.2); RDW Standard Deviation 46.9 fL (35.1-46.3)
[2025-09-03 05:35] LABS: Anion Gap 8.0 mmol/L (3-11); Blood Urea Nitrogen 57.0 mg/dL (8-24); CO2, Blood 37.0 mmol/L (21-32); Calcium, Blood 8.6 mg/dL (8.5-10.1); Chloride, Blood 92.0 mmol/L (98-108); Creatinine, Blood 3.03 mg/dL (0.60-1.20); Glucose, Blood 92.0 mg/dL (70-99); Potassium, Blood 3.2 mmol/L (3.5-5.5); Sodium, Blood 134.0 mmol/L (136-145)
--- NOTE | 2025-09-03 05:50 | NUR ---
SHIFT SUMMARY PATIENT A/OX4, ABLE TO MAKE NEEDS KNOWN WHEN AWAKE. PATIENT BECOMES EASILY DISORIENTED WHEN FIRST WAKING UP AND WILL FORGET TO USE CALL LIGHT. PLEASANT AND COOPERATIVE WITH STAFF. POWERGLIDE TO ELVIN, DRESSING CDI. PATIENT WITH INCREASED OXYGEN NEEDS WHEN ASLEEP, MOST OF NIGHT PATIENT NEEDING 2LPM VIA NASAL CANNULA, FOR SHORT TIME PATIENT NEEDING 3 LPM VIA NASAL CANNULA, APPROX 1 HOUR. PATIENT WAS IN A DEEP SLEEP AND DIFFICULT TO AROUSE FROM SLEEP. DID NOT WAKE WITH REPOSITIONING. CONTINUES WITH 2+ EDEMA TO BLE. NO OTHER CONCERNS AT THIS TIME, WILL CONTINUE TO MONITOR.
[2025-09-03 07:23] VITALS: BP 136/67
[2025-09-03 11:11] VITALS: BP 131/79
[2025-09-03] MEDS ORDERED: SOAANZ40 M1 PO (12:04)
[2025-09-03] MEDS ORDERED: CARV3.125 PO (12:07)
[2025-09-03] MEDS ORDERED: LOSA25 PO (12:08)
--- NOTE | 2025-09-03 14:25 | NUR ---
DISCHARGE NOTE PT A&OX4. PT ADMITTED DUE TO CHEST PAIN. PT REPORTS NO GEN PAIN, NO SOB AND NO CHEST PAIN. PT HAD ACHS ORDERS, INSULIN COVERAGE NOT NEEDED FOR BREAKFAST AND LUNCH. PT IS A SBA. PHYSICAL THERAPY WORKED WITH PT THIS AM. PT HAD CONT PULSE OX ON. AT REST SPO2 IS 94%. DR. DUNBAR/RANULFO ORDERED DISCHARGE. THIS RN CALLED DR. DUNBAR TO CLARIFY PT GOING HOME ON NO O2, DISCHARGE STATES PT GOING WITH O2. DR. DUNBAR CLARIFIED "PT GOING HOME WITHOUT O2." PT WAS ON TELE, NO REPORTS NOTED. TELE D/C. THIS RN D/C POWERGLIDE. BREAK RN COMPLETED DISCHARGE AND FAXED MEDS. THIS RN WENT OVER DISCHARGE AND MEDS WITH PT. EDUCATION INSTRUCTOR ESCORTED PT TO PT ENTERANCE.
== END 2025-09-03 14:22 | disposition home health service (06) | DRG 291 ==
LOC: ER 11:54 → MEDS 11:55 → ENPENDDIS 09-03 10:58 → MEDS 09-03 14:22
PROVIDERS: Emergency Medicine; Student in an Organized Health Care Education/Training Program; ADMIT Internal Medicine
DX: I13.0 Hypertensive heart and chronic kidney disease with heart failure and stage 1 through stage 4 chronic kidney disease, or unspecified chronic kidney disease (principal); I50.21 Acute systolic (congestive) heart failure; J96.01 Acute respiratory failure with hypoxia; N18.4 Chronic kidney disease, stage 4 (severe); I47.20 Ventricular tachycardia, unspecified; E11.22 Type 2 diabetes mellitus with diabetic chronic kidney disease; M19.90 Unspecified osteoarthritis, unspecified site; N40.0 Benign prostatic hyperplasia without lower urinary tract symptoms; E87.6 Hypokalemia; T78.3XXA Angioneurotic edema, initial encounter; K21.9 Gastro-esophageal reflux disease without esophagitis; Z23 Encounter for immunization; Z91.030 Bee allergy status; Z88.8 Allergy status to other drugs, medicaments and biological substances; Z79.899 Other long term (current) drug therapy; Z79.82 Long term (current) use of aspirin; Z90.49 Acquired absence of other specified parts of digestive tract; Z98.52 Vasectomy status; Z98.890 Other specified postprocedural states; Z87.891 Personal history of nicotine dependence; Z87.39 Personal history of other diseases of the musculoskeletal system and connective tissue
CPT/HCPCS: 36415; 71046; 80048; 80053; 82947; 83036; 83735; 83880; 84484; 85025; 93005; 93010; 94761; 94762; 96365; 96366; 96372; 96374; 96375; 96376; 97110; 97116; 97161; 97530; 99285-25; A9270; C1751; G0378; J1644; J1938; J3480; J7050